=== PATIENT | male | born 1990 | race Two or more races ===

== ENCOUNTER 2020-04-23 03:56 | Outpatient (CLI) | payer OTHER | END 2020-04-23 23:59 | disposition home or self-care (01) | LOC: LAB 03:56 | DX: Z03.818 Encounter for observation for suspected exposure to other biological agents ruled out (principal) | CPT/HCPCS: U0003-CS ==

== ENCOUNTER 2020-06-26 03:37 | Emergency (ER) | payer OTHER ==
[~2020-06-26] VITALS: Ht 165.1 cm; Wt 90.7 kg
[2020-06-26 03:40] VITALS: BP 132/69
--- NOTE | 2020-06-26 04:17 | NUR ---
covid swab sent to lab
== END 2020-06-26 04:17 | disposition home or self-care (01) ==
LOC: ER 03:44
DX: Z11.59 Encounter for screening for other viral diseases (principal)
CPT/HCPCS: 99283; C9803; U0003

== ENCOUNTER 2020-07-10 01:06 | Emergency (ER) | payer OTHER ==
[~2020-07-10] VITALS: Ht 165.1 cm; Wt 90.7 kg
[2020-07-10 01:08] VITALS: BP 134/62
--- NOTE | 2020-07-10 01:30 | NUR ---
COVID SWAB COLLECTED AND SENT TO LAB.
== END 2020-07-10 01:37 | disposition home or self-care (01) ==
LOC: ER 01:09
DX: Z20.828 Contact with and (suspected) exposure to other viral communicable diseases (principal)
CPT/HCPCS: 99283; C9803; U0003

== ENCOUNTER 2020-07-24 02:00 | Emergency (ER) | payer OTHER ==
[~2020-07-24] VITALS: Ht 165.1 cm; Wt 90.7 kg
[2020-07-24 02:01] VITALS: BP 132/62
--- NOTE | 2020-07-24 02:06 | NUR ---
Tony hyatt in [facility] - 07/24/20 at 0206 by VIRY CALLED FOR BENJAID SWAB
--- NOTE | 2020-07-24 02:06 | NUR ---
CALLED LAB FOR COVID SWAB
== END 2020-07-24 02:17 | disposition home or self-care (01) ==
LOC: ER 02:03
DX: Z20.828 Contact with and (suspected) exposure to other viral communicable diseases (principal)
CPT/HCPCS: 99283; C9803; U0003

== ENCOUNTER 2020-07-31 04:49 | Emergency (ER) | payer OTHER ==
[~2020-07-31] VITALS: Ht 165.1 cm; Wt 86.2 kg
[2020-07-31 04:50] VITALS: BP 124/62
--- NOTE | 2020-07-31 05:00 | NUR ---
COVID SWAB COLLECT AND SENT TO LAB.
== END 2020-07-31 05:03 | disposition home or self-care (01) ==
LOC: ER 04:49
DX: Z20.828 Contact with and (suspected) exposure to other viral communicable diseases (principal)
CPT/HCPCS: 99283; C9803; U0003

== ENCOUNTER 2020-08-05 03:21 | Emergency (ER) | payer OTHER ==
[~2020-08-05] VITALS: Ht 165.1 cm; Wt 86.2 kg
[2020-08-05 03:27] VITALS: BP 121/66
--- NOTE | 2020-08-06 09:35 | NUR ---
COVID RESULT: NEGATIVE
== END 2020-08-05 03:40 | disposition home or self-care (01) ==
LOC: ER 03:21
DX: Z20.828 Contact with and (suspected) exposure to other viral communicable diseases (principal)
CPT/HCPCS: 99283; C9803; U0003

== ENCOUNTER 2020-08-20 03:38 | Emergency (ER) | payer OTHER ==
[~2020-08-20] VITALS: Ht 165.1 cm; Wt 86.2 kg
[2020-08-20 03:41] VITALS: BP 117/67
--- NOTE | 2020-08-20 03:50 | NUR ---
COVID SWAB SAMPLE COLLECTED AND SENT TO THE LAB.
--- NOTE | 2020-08-20 03:50 | NUR ---
Patient discharged to home in stable condition. Written and verbal after care instructions given. Patient verbalizes understanding of instruction.
== END 2020-08-20 03:52 | disposition home or self-care (01) ==
LOC: ER 03:38
DX: Z20.828 Contact with and (suspected) exposure to other viral communicable diseases (principal)
CPT/HCPCS: 99283; C9803; U0003

== ENCOUNTER 2020-08-27 04:19 | Emergency (ER) | payer OTHER ==
[~2020-08-27] VITALS: Ht 165.1 cm; Wt 86.2 kg
[2020-08-27 04:22] VITALS: BP 124/62
== END 2020-08-27 04:41 | disposition home or self-care (01) ==
LOC: ER 04:26
DX: Z20.828 Contact with and (suspected) exposure to other viral communicable diseases (principal)
CPT/HCPCS: 99283; C9803; U0003

== ENCOUNTER 2020-09-09 04:20 | Emergency (ER) | payer OTHER ==
[~2020-09-09] VITALS: Ht 165.1 cm; Wt 86.2 kg
[2020-09-09 04:22] VITALS: BP 127/62
== END 2020-09-09 04:52 | disposition home or self-care (01) ==
LOC: ER 04:20
DX: Z20.828 Contact with and (suspected) exposure to other viral communicable diseases (principal)
CPT/HCPCS: 99283; C9803; U0003

== ENCOUNTER 2020-09-18 07:21 | Emergency (ER) | payer OTHER ==
[~2020-09-18] VITALS: Ht 165.1 cm; Wt 90.7 kg
[2020-09-18 07:21] VITALS: BP 121/81
--- NOTE | 2020-09-18 07:35 | NUR ---
CALLED LAB FOR COVID PCR SWAB.
== END 2020-09-18 07:44 | disposition home or self-care (01) ==
LOC: ER 07:22
DX: Z20.828 Contact with and (suspected) exposure to other viral communicable diseases (principal)
CPT/HCPCS: 99283; C9803; U0003

== ENCOUNTER 2020-09-23 05:55 | Emergency (ER) | payer OTHER ==
[~2020-09-23] VITALS: Ht 165.1 cm; Wt 90.7 kg
[2020-09-23 05:55] VITALS: BP 128/64
== END 2020-09-23 06:21 | disposition home or self-care (01) ==
LOC: ER 05:59
DX: Z20.828 Contact with and (suspected) exposure to other viral communicable diseases (principal)
CPT/HCPCS: 99283; C9803; U0003

== ENCOUNTER 2020-10-01 05:45 | Emergency (ER) | payer OTHER ==
[~2020-10-01] VITALS: Ht 165.1 cm; Wt 90.7 kg
[2020-10-01 05:46] VITALS: BP 132/64
== END 2020-10-01 05:51 | disposition home or self-care (01) ==
LOC: ER 05:47
DX: Z20.828 Contact with and (suspected) exposure to other viral communicable diseases (principal)
CPT/HCPCS: 99283; C9803; U0003

== ENCOUNTER 2020-10-07 04:23 | Emergency (ER) | payer OTHER ==
[~2020-10-07] VITALS: Ht 165.1 cm; Wt 90.7 kg
[2020-10-07 04:25] VITALS: BP 131/72
== END 2020-10-07 04:48 | disposition home or self-care (01) ==
LOC: ER 04:26
DX: Z20.828 Contact with and (suspected) exposure to other viral communicable diseases (principal)
CPT/HCPCS: 99283; C9803; U0003

== ENCOUNTER 2020-10-16 04:26 | Emergency (ER) | payer OTHER ==
[~2020-10-16] VITALS: Ht 165.1 cm; Wt 90.7 kg
[2020-10-16 04:28] VITALS: BP 125/62
--- NOTE | 2020-10-16 04:49 | NUR ---
COVID SWAB SENT TO LAB
== END 2020-10-16 04:49 | disposition home or self-care (01) ==
LOC: ER 04:27
DX: Z20.828 Contact with and (suspected) exposure to other viral communicable diseases (principal)
CPT/HCPCS: 99283; C9803; U0003

== ENCOUNTER 2020-10-21 04:52 | Emergency (ER) | payer OTHER ==
[~2020-10-21] VITALS: Ht 165.1 cm; Wt 90.7 kg
[2020-10-21 04:52] VITALS: BP 132/70
== END 2020-10-21 05:08 | disposition home or self-care (01) ==
LOC: ER 04:52
DX: Z20.828 Contact with and (suspected) exposure to other viral communicable diseases (principal)
CPT/HCPCS: 99283; C9803; U0003

== ENCOUNTER 2020-11-04 04:36 | Emergency (ER) | payer OTHER ==
[~2020-11-04] VITALS: Ht 165.1 cm; Wt 90.7 kg
[2020-11-04 04:39] VITALS: BP 125/64
== END 2020-11-04 04:50 | disposition home or self-care (01) ==
LOC: ER 04:40
DX: Z20.828 Contact with and (suspected) exposure to other viral communicable diseases (principal)
CPT/HCPCS: 99283; C9803; U0003

== ENCOUNTER 2020-11-12 03:32 | Emergency (ER) | payer OTHER ==
[~2020-11-12] VITALS: Ht 165.1 cm; Wt 90.7 kg
[2020-11-12 03:36] VITALS: BP 128/76
== END 2020-11-12 03:53 | disposition home or self-care (01) ==
LOC: ER 03:37
DX: Z20.828 Contact with and (suspected) exposure to other viral communicable diseases (principal)
CPT/HCPCS: 99283; C9803; U0003

== ENCOUNTER 2020-11-15 04:55 | Emergency (ER) | payer OTHER ==
[~2020-11-15] VITALS: Ht 167.6 cm; Wt 86.2 kg
[2020-11-15 04:56] VITALS: BP 132/64
== END 2020-11-15 05:12 | disposition home or self-care (01) ==
LOC: ER 04:59
DX: Z20.828 Contact with and (suspected) exposure to other viral communicable diseases (principal)
CPT/HCPCS: 99283; C9803; U0003

== ENCOUNTER 2020-11-18 04:27 | Emergency (ER) | payer OTHER ==
[~2020-11-18] VITALS: Ht 167.6 cm; Wt 86.2 kg
[2020-11-18 04:40] VITALS: BP 128/76
== END 2020-11-18 04:48 | disposition home or self-care (01) ==
LOC: ER 04:28
DX: Z20.828 Contact with and (suspected) exposure to other viral communicable diseases (principal)
CPT/HCPCS: 99283; C9803; U0003

== ENCOUNTER 2020-11-26 04:03 | Emergency (ER) | payer OTHER ==
[~2020-11-26] VITALS: Ht 165.1 cm; Wt 90.7 kg
[2020-11-26 04:05] VITALS: BP 122/68
== END 2020-11-26 04:19 | disposition home or self-care (01) ==
LOC: ER 04:07
DX: Z20.822 Contact with and (suspected) exposure to COVID-19 (principal)
CPT/HCPCS: 99283; C9803; U0003

== ENCOUNTER → 2020-11-29 | Emergency (ER) | payer OTHER ==
[~2020-11-29] VITALS: Ht 165.1 cm; Wt 90.7 kg
[2020-11-29 05:34] VITALS: BP 114/65
--- NOTE | 2020-11-30 23:56 | NUR ---
LAB CALLED REGARDING NEGATIVE COVID RESULT.
== END | disposition home or self-care (01) ==
LOC: ER 05:32
DX: Z20.828 Contact with and (suspected) exposure to other viral communicable diseases (principal)
CPT/HCPCS: 99283; C9803; U0003

== ENCOUNTER 2020-12-03 03:17 | Emergency (ER) | payer OTHER ==
[~2020-12-03] VITALS: Ht 167.6 cm; Wt 78.5 kg
[2020-12-03 03:19] VITALS: BP 124/72
== END 2020-12-03 03:40 | disposition home or self-care (01) ==
LOC: ER 03:20
DX: Z20.822 Contact with and (suspected) exposure to COVID-19 (principal)
CPT/HCPCS: 99283; C9803; U0003

== ENCOUNTER 2020-12-08 01:25 | Emergency (ER) | payer OTHER ==
[~2020-12-08] VITALS: Ht 167.6 cm; Wt 90.7 kg
[2020-12-08 01:27] VITALS: BP 124/62
== END 2020-12-08 01:48 | disposition home or self-care (01) ==
LOC: ER 01:29
DX: Z20.822 Contact with and (suspected) exposure to COVID-19 (principal)
CPT/HCPCS: 99283; C9803; U0003

== ENCOUNTER 2020-12-13 00:57 | Emergency (ER) | payer OTHER ==
[~2020-12-13] VITALS: Ht 167.6 cm; Wt 90.7 kg
[2020-12-13 01:01] VITALS: BP 129/84
== END 2020-12-13 01:32 | disposition home or self-care (01) ==
LOC: ER 01:08
DX: Z20.822 Contact with and (suspected) exposure to COVID-19 (principal)
CPT/HCPCS: 99283; C9803; U0003

== ENCOUNTER 2020-12-23 04:11 | Emergency (ER) | payer OTHER ==
[~2020-12-23] VITALS: Ht 165.1 cm; Wt 90.7 kg
[2020-12-23 04:13] VITALS: BP 116/64
== END 2020-12-23 04:55 | disposition home or self-care (01) ==
LOC: ER 04:11
DX: Z20.822 Contact with and (suspected) exposure to COVID-19 (principal)
CPT/HCPCS: 99283; C9803; U0003

== ENCOUNTER 2020-12-25 04:44 | Emergency (ER) | payer OTHER ==
[~2020-12-25] VITALS: Ht 167.6 cm; Wt 78.5 kg
[2020-12-25 04:46] VITALS: BP 113/69
== END 2020-12-25 05:43 | disposition home or self-care (01) ==
LOC: ER 04:44
DX: Z20.822 Contact with and (suspected) exposure to COVID-19 (principal)
CPT/HCPCS: 99283; C9803; U0003

== ENCOUNTER 2020-12-30 02:07 | Emergency (ER) | payer OTHER ==
[~2020-12-30] VITALS: Ht 170.2 cm; Wt 78.5 kg
[2020-12-30 02:15] VITALS: BP 116/78
== END 2020-12-30 02:48 | disposition home or self-care (01) ==
LOC: ER 02:14
DX: Z20.822 Contact with and (suspected) exposure to COVID-19 (principal)
CPT/HCPCS: 99283; C9803; U0003

== ENCOUNTER 2020-12-31 00:29 | Emergency (ER) | payer OTHER ==
[~2020-12-31] VITALS: Ht 170.2 cm; Wt 78.5 kg
[2020-12-31 00:39] VITALS: BP 129/80
== END 2020-12-31 00:59 | disposition home or self-care (01) ==
LOC: ER 00:30
DX: Z20.822 Contact with and (suspected) exposure to COVID-19 (principal)
CPT/HCPCS: 99283; C9803; U0003

== ENCOUNTER 2021-01-06 04:28 | Emergency (ER) | payer OTHER ==
[~2021-01-06] VITALS: Ht 170.2 cm; Wt 90.7 kg
[2021-01-06 04:30] VITALS: BP 133/65
== END 2021-01-06 04:52 | disposition home or self-care (01) ==
LOC: ER 04:28
DX: Z20.822 Contact with and (suspected) exposure to COVID-19 (principal)
CPT/HCPCS: 99283; C9803; U0003

== ENCOUNTER 2021-01-09 04:46 | Emergency (ER) | payer OTHER ==
[~2021-01-09] VITALS: Ht 170.2 cm; Wt 90.7 kg
[2021-01-09 04:48] VITALS: BP 125/61
== END 2021-01-09 05:44 | disposition home or self-care (01) ==
LOC: ER 04:53
DX: Z20.822 Contact with and (suspected) exposure to COVID-19 (principal)
CPT/HCPCS: 99283; C9803; U0003

== ENCOUNTER 2021-01-10 01:28 | Emergency (ER) | payer OTHER ==
[~2021-01-10] VITALS: Ht 170.2 cm; Wt 90.7 kg
[2021-01-10 01:28] VITALS: BP 129/61
== END 2021-01-10 03:14 | disposition home or self-care (01) ==
LOC: ER 01:32
DX: Z20.822 Contact with and (suspected) exposure to COVID-19 (principal)
CPT/HCPCS: 99283; C9803; U0003

== ENCOUNTER 2021-01-17 00:39 | Emergency (ER) | payer OTHER ==
[~2021-01-17] VITALS: Ht 170.2 cm; Wt 90.7 kg
[2021-01-17 00:42] VITALS: BP 141/84
== END 2021-01-17 01:16 | disposition home or self-care (01) ==
LOC: ER 00:43
DX: Z20.822 Contact with and (suspected) exposure to COVID-19 (principal)
CPT/HCPCS: 99283; C9803; U0003

== ENCOUNTER 2021-01-22 20:18 | Emergency (ER) | payer OTHER ==
[~2021-01-22] VITALS: Ht 167.6 cm; Wt 90.7 kg
[2021-01-22 20:21] VITALS: BP 121/73
--- NOTE | 2021-01-22 20:42 | NUR ---
Patient discharged to home in stable condition. Written and verbal after care instructions given. Patient verbalizes understanding of instruction. Pt ambulatory with a steady gait
== END 2021-01-22 20:44 | disposition home or self-care (01) ==
LOC: ER 20:20
DX: Z02.89 Encounter for other administrative examinations (principal); Z20.822 Contact with and (suspected) exposure to COVID-19
CPT/HCPCS: 99283; C9803; U0003

== ENCOUNTER 2021-01-26 00:37 | Emergency (ER) | payer OTHER ==
[~2021-01-26] VITALS: Ht 167.6 cm; Wt 90.7 kg
[2021-01-26 00:39] VITALS: BP 119/68
== END 2021-01-26 01:53 | disposition home or self-care (01) ==
LOC: ER 00:41
DX: Z20.822 Contact with and (suspected) exposure to COVID-19 (principal)
CPT/HCPCS: 99283; C9803; U0003

== ENCOUNTER 2021-02-02 02:06 | Emergency (ER) | payer OTHER ==
[~2021-02-02] VITALS: Ht 167.6 cm; Wt 90.7 kg
[2021-02-02 02:08] VITALS: BP 126/62
== END 2021-02-02 02:35 | disposition home or self-care (01) ==
LOC: ER 02:12
DX: Z20.822 Contact with and (suspected) exposure to COVID-19 (principal)
CPT/HCPCS: 99283; C9803; U0003

== ENCOUNTER 2021-02-07 01:07 | Emergency (ER) | payer OTHER ==
[~2021-02-07] VITALS: Ht 170.2 cm; Wt 78.5 kg
[2021-02-07 01:10] VITALS: BP 119/72
== END 2021-02-07 02:18 | disposition home or self-care (01) ==
LOC: ER 01:14
DX: Z20.822 Contact with and (suspected) exposure to COVID-19 (principal)
CPT/HCPCS: 99283; C9803; U0003

== ENCOUNTER 2021-02-19 21:13 | Emergency (ER) | payer OTHER ==
[~2021-02-19] VITALS: Ht 162.6 cm; Wt 90.7 kg
[2021-02-19 21:14] VITALS: BP 119/73
== END 2021-02-19 21:26 | disposition home or self-care (01) ==
LOC: ER 21:14
DX: Z20.822 Contact with and (suspected) exposure to COVID-19 (principal)
CPT/HCPCS: 99283; C9803; U0003

== ENCOUNTER 2021-02-21 02:29 | Emergency (ER) | payer OTHER ==
[~2021-02-21] VITALS: Ht 170.2 cm; Wt 90.7 kg
[2021-02-21 02:35] VITALS: BP 124/71
== END 2021-02-21 03:01 | disposition home or self-care (01) ==
LOC: ER 02:35
DX: Z20.822 Contact with and (suspected) exposure to COVID-19 (principal)
CPT/HCPCS: 99283; C9803; U0003

== ENCOUNTER 2021-03-01 01:03 | Emergency (ER) | payer OTHER ==
[~2021-03-01] VITALS: Ht 170.2 cm; Wt 90.7 kg
[2021-03-01 01:06] VITALS: BP 122/66
== END 2021-03-01 01:27 | disposition home or self-care (01) ==
LOC: ER 01:07
DX: Z20.822 Contact with and (suspected) exposure to COVID-19 (principal)
CPT/HCPCS: 99283; C9803; U0003

== ENCOUNTER 2021-03-08 01:21 | Emergency (ER) | payer OTHER ==
[~2021-03-08] VITALS: Ht 170.2 cm; Wt 90.7 kg
[2021-03-08 01:22] VITALS: BP 131/72
== END 2021-03-08 02:28 | disposition home or self-care (01) ==
LOC: ER 01:28
DX: Z20.822 Contact with and (suspected) exposure to COVID-19 (principal)
CPT/HCPCS: 99283; C9803; U0003

== ENCOUNTER 2021-03-17 02:42 | Emergency (ER) | payer OTHER ==
[~2021-03-17] VITALS: Ht 165.1 cm; Wt 90.7 kg
[2021-03-17 02:44] VITALS: BP 124/73
== END 2021-03-17 03:32 | disposition home or self-care (01) ==
LOC: ER 02:42
DX: Z20.822 Contact with and (suspected) exposure to COVID-19 (principal)
CPT/HCPCS: 99283; C9803; U0003

== ENCOUNTER 2021-03-23 02:39 | Emergency (ER) | payer OTHER ==
[~2021-03-23] VITALS: Ht 165.1 cm; Wt 90.7 kg
[2021-03-23 02:43] VITALS: BP 128/64
== END 2021-03-23 03:06 | disposition home or self-care (01) ==
LOC: ER 02:42
DX: Z20.822 Contact with and (suspected) exposure to COVID-19 (principal)
CPT/HCPCS: 99283; C9803; U0003

== ENCOUNTER 2021-04-03 23:44 | Emergency (ER) | payer OTHER ==
[~2021-04-03] VITALS: Ht 165.1 cm; Wt 90.7 kg
[2021-04-03 23:54] VITALS: BP 122/68
== END 2021-04-04 00:38 | disposition home or self-care (01) ==
LOC: ER 23:49
DX: Z20.822 Contact with and (suspected) exposure to COVID-19 (principal)
CPT/HCPCS: 99283; C9803; U0003

== ENCOUNTER 2021-04-16 19:49 | Emergency (ER) | payer OTHER ==
[~2021-04-16] VITALS: Ht 165.1 cm; Wt 90.7 kg
[2021-04-16 19:56] VITALS: BP 134/79
== END 2021-04-16 20:38 | disposition home or self-care (01) ==
LOC: ER 19:57
DX: Z20.822 Contact with and (suspected) exposure to COVID-19 (principal)
CPT/HCPCS: 99283; C9803; U0003

== ENCOUNTER 2021-04-18 02:44 | Emergency (ER) | payer OTHER ==
[~2021-04-18] VITALS: Ht 165.1 cm; Wt 90.7 kg
[2021-04-18 02:56] VITALS: BP 131/75
== END 2021-04-18 03:47 | disposition home or self-care (01) ==
LOC: ER 02:52
DX: Z20.822 Contact with and (suspected) exposure to COVID-19 (principal)
CPT/HCPCS: 99283; C9803; U0003

== ENCOUNTER 2021-04-25 23:53 | Emergency (ER) | payer OTHER ==
[~2021-04-25] VITALS: Ht 165.1 cm; Wt 90.7 kg
[2021-04-26 00:03] VITALS: BP 124/61
== END 2021-04-26 00:31 | disposition home or self-care (01) ==
LOC: ER 23:56
DX: Z20.822 Contact with and (suspected) exposure to COVID-19 (principal)
CPT/HCPCS: 99283; C9803; U0003

== ENCOUNTER 2021-05-06 02:34 | Emergency (ER) | payer OTHER ==
[~2021-05-06] VITALS: Ht 165.1 cm; Wt 90.7 kg
[2021-05-06 02:37] VITALS: BP 125/61
== END 2021-05-06 03:47 | disposition home or self-care (01) ==
LOC: ER 02:38
DX: Z20.822 Contact with and (suspected) exposure to COVID-19 (principal)
CPT/HCPCS: 99283; C9803; U0003

== ENCOUNTER 2021-05-12 04:09 | Emergency (ER) | payer OTHER ==
[~2021-05-12] VITALS: Ht 165.1 cm; Wt 90.7 kg
[2021-05-12 04:12] VITALS: BP 118/77
== END 2021-05-12 05:01 | disposition home or self-care (01) ==
LOC: ER 04:09
DX: Z20.822 Contact with and (suspected) exposure to COVID-19 (principal)
CPT/HCPCS: 99283; C9803; U0003

== ENCOUNTER 2021-05-19 04:25 | Emergency (ER) | payer OTHER ==
[~2021-05-19] VITALS: Ht 165.1 cm; Wt 90.7 kg
[2021-05-19 04:27] VITALS: BP 128/63
== END 2021-05-19 05:35 | disposition home or self-care (01) ==
LOC: ER 04:25
DX: Z20.822 Contact with and (suspected) exposure to COVID-19 (principal)
CPT/HCPCS: 99283; C9803; U0003

== ENCOUNTER 2021-07-31 00:46 | Emergency (ER) | payer OTHER ==
[~2021-07-31] VITALS: Ht 165.1 cm; Wt 90.7 kg
[2021-07-31 00:54] VITALS: BP 124/78
--- NOTE | 2021-07-31 00:57 | NUR ---
Patient discharged to home in stable condition. Written and verbal after care instructions given. Patient verbalizes understanding of instruction.
== END 2021-07-31 01:50 | disposition home or self-care (01) ==
LOC: ER 00:46
DX: Z20.822 Contact with and (suspected) exposure to COVID-19 (principal)
CPT/HCPCS: 99283; C9803; U0003

== ENCOUNTER 2024-03-30 20:51 | Emergency (ER) | payer BC, OTHER ==
[~2024-03-30] VITALS: Ht 165.1 cm; Wt 91.6 kg
[2024-03-30] MEDS ORDERED: SULF1TAB48 PO (21:20)
[2024-03-30 21:26] VITALS: BP 118/84; TEMP 98; O2SAT 99
== END 2024-03-30 21:30 | disposition home or self-care (01) ==
LOC: ER 20:55
DX: L73.9 Follicular disorder, unspecified (principal); L03.114 Cellulitis of left upper limb; Z79.899 Other long term (current) drug therapy

== ENCOUNTER 2025-06-23 21:53 | Emergency (ER) | payer BC, OTHER ==
[~2025-06-23] VITALS: Ht 165.1 cm; Wt 88.9 kg
[~2025-06-23 21:53] MED LIST: SULF1TAB48 PO
[2025-06-23 22:10] VITALS: BP 122/70; TEMP 98.7; O2SAT 98
[2025-06-23] MEDS ORDERED: CIPROFLOXACIN HCL 500 MG TABLET PO ONE (22:30)
[2025-06-24] MEDS ORDERED: AZITHROMYCIN 250 MG TABLET PO ONE
[2025-06-24] MEDS ORDERED: AZITHROMYCIN 250 MG TABLET ONE (00:40)
[2025-06-24] MEDS ORDERED: CIPROFLOXACIN HCL 500 MG TABLET ONE (00:41)
== END 2025-06-24 01:53 | disposition home or self-care (01) ==
LOC: ER 21:56
DX: Z13.89 Encounter for screening for other disorder (principal)